=== PATIENT | female | born 1970 | race Caucasian/White ===

== ENCOUNTER → 2017-03-05 | Day surgery (SDC) | payer OTHER ==
[~2017-03-05] MED LIST: BUPIVACAINE 0.5% 30 ML SDV ONE; LIDOCAINE 1% 30 ML SDV ONE; LR 1,000 ML IV ONE; MIDAZOLAM 2 MG/2 ML VIAL ONE; PROPOFOL/EMULSION 500 MG/50 ML BOTTLE IV ONE; ceFAZolin 2 GM/DEXTROSE 100 ML IV ONE; fentaNYL 100 MCG/2 ML INJ ONE
--- NOTE | 2017-03-05 09:49 | GOP ---
[f rep st] OPERATIVE REPORT DATE OF OPERATION: 03/05/2017 SURGEON: Caprice Degroot MD LOAN SPECIALIST: Sirisha Bourne, BETO. ANESTHESIA: Monitored anesthesia care with IV sedation. ANESTHESIOLOGIST: Yaron Reynolds MD. PREOPERATIVE DIAGNOSIS: Lymphadenopathy. POSTOPERATIVE DIAGNOSIS: Lymphadenopathy. PROCEDURE PERFORMED: Left excisional biopsy of superficial groin node. FINDINGS: Enlarged lymph nodes. SPECIMENS: Lymph node. ESTIMATED BLOOD LOSS: 5 cc. INDICATIONS: The patient is a 47-year-old woman who had lymphadenopathy. She had a PET scan that showed PET avid axillary and groin lymph nodes. DESCRIPTION OF PROCEDURE: The patient was brought into the operating room, placed supine on the table, and monitored anesthesia care with IV sedation was performed. Her groin was prepped and draped in the usual sterile fashion. I infiltrated the area with 10 cc of 0.5% Marcaine mixed with 1% lidocaine. I made an incision over the mass. I dissected down through the subcutaneous tissues until I encountered the lymph node. I circumferentially dissected it from the investing tissues, and I was able to use electrocautery to ligate the lymphovascular bundle. This was passed off the field as fresh. The wound was irrigated. Hemostasis was achieved. The wound was closed with 3-0 Vicryl, 4-0 Monocryl, Mastisol, Steri-Strips, sterile dressing were applied. She was awakened in the operating room and taken to the PACU in stable condition. /[id number]/MODL MTDD
[2017-03-08 14:54] LABS: FINAL DIAGNOSIS See Comments; MICROSCOPIC DESCRIPTION See Comments
== END | disposition home or self-care (01) ==
LOC: FSGY 06:42
PROVIDERS: ATTEND Surgery
PROC: 07BJ0ZX Excision of Left Inguinal Lymphatic, Open Approach, Diagnostic (ICD-10-PCS; principal; 2017-03-05 08:30)
DX: C85.15 Unspecified B-cell lymphoma, lymph nodes of inguinal region and lower limb (principal)
CPT/HCPCS: 88184-90; 88185-91; J0690; J2250; J2704; J3010